=== PATIENT | female | born 1995 | race Caucasian/White ===

== ENCOUNTER → 2020-11-21 | Outpatient (CLI) | payer BC ==
[~2020-11-21] MED LIST: CATHETER FLUSH 10 ML SYR IV PRN; HOLD METFORMIN - RECEIVED CONTRAST 20 ML VIAL IV SCH; IOHEXOL 350 MG/ML 100 ML (OMNIPAQUE 350) VIAL IV ONE; NS 100 ML (IVPB) BAG IV ONE
--- NOTE | 2020-11-21 09:47 | Diagnostic Imaging Report ---
PROCEDURE: CT neck soft tissue with contrast. TECHNIQUE: Multiple contiguous axial images were obtained through the neck after the administration of contrast. Auto Exposure Controls were utilized during the CT exam to meet ALARA standards for radiation dose reduction. INDICATION: Periauricular swelling, symptoms began 2 months ago The parotid and submandibular glands of the thyroid unremarkable. The nasopharynx, oropharynx and hypopharynx unremarkable. The prevertebral and retropharyngeal spaces unremarkable. No cervical adenopathy. No airway compromise. The thoracic inlet and visualized apices are unremarkable. No suspicious bony pathology. IMPRESSION: This is an unremarkable soft tissue neck CT. No acute finding. No abnormalities to explain the abnormal clinical exam. No suspicious feature. Dictated by: Dictated on workstation # [id number]
== END ==
LOC: RAD FS 07:58
PROVIDERS: ATTEND Nurse Practitioner Family
DX: M54.2 Cervicalgia (principal); R22.0 Localized swelling, mass and lump, head
CPT/HCPCS: 70491

== ENCOUNTER → 2021-08-10 | Outpatient (CLI) | payer BC | LOC: LAB FS 08:39 | PROVIDERS: ATTEND Nurse Practitioner Family | DX: O20.9 Hemorrhage in early pregnancy, unspecified (principal); Z3A.00 Weeks of gestation of pregnancy not specified | CPT/HCPCS: 36415; 84702 ==

== ENCOUNTER 2021-08-22 09:24 | Emergency (ER) | payer BC ==
[~2021-08-22] VITALS: Ht 162.5 cm; Wt 71.6 kg
[2021-08-22 10:07] LABS: BILIRUBIN,URINE NEGATIVE (NEGATIVE); CLARITY,URINE CLEAR; COLOR,URINE YELLOW; GLUCOSE, URINE (UA) NEGATIVE (NEGATIVE); KETONES,URINE NEGATIVE (NEGATIVE); LEUKOCYTE ESTERASE ,URINE NEGATIVE (NEGATIVE); NITRITE,URINE NEGATIVE (NEGATIVE); PROTEIN,URINE NEGATIVE (NEGATIVE)
[2021-08-22 10:09] VITALS: BP 120/77
[2021-08-22 10:30] LABS: BACTERIA,URINE NEGATIVE /HPF; SQUAMOUS EPITHELIAL CELL,UR RARE /HPF
[2021-08-22 10:32] LABS: BASOPHILS % (AUTO) 0 % (0-10); EOSINOPHILS % (AUTO) 0 % (0-10); HEMATOCRIT 41 % (35-52); HEMOGLOBIN 13.6 g/dL (11.5-16.0); LYMPHOCYTES # (AUTO) 2.5 10^3/uL (1.0-4.0); LYMPHOCYTES % (AUTO) 25 % (12-44); MEAN CORPUSCULAR HEMOGLOBIN 28 pg (25-34); MEAN CORPUSCULAR HGB CONC 33 g/dL (32-36); MEAN CORPUSCULAR VOLUME 85 fL (80-99); MEAN PLATELET VOLUME 8.9 fL (9.0-12.2); MONOCYTES # (AUTO) 0.4 10^3/uL (0.0-1.0); MONOCYTES % (AUTO) 4 % (0-12); NEUTROPHILS # (AUTO) 7.1 10^3/uL (1.8-7.8); NEUTROPHILS % (AUTO) 70 % (42-75); PLATELET COUNT 239 10^3/uL (130-400); WHITE BLOOD COUNT 10.1 10^3/uL (4.3-11.0)
--- NOTE | 2021-08-22 11:02 | ED GU-Female ---
General Chief Complaint: OB < 20 WEEKS Stated Complaint: VAGINAL BLEEDING 8 WEEKS PREG Nursing Triage Note: pt reports being 8 weeks . Spotting since 08/09. today had blood clots and heavier bleeding. Has 2 previous miscarriages Source: patient Exam Limitations: no limitations (STEPHANE MONSALVE APRN) History of Present Illness Date Seen by Provider: Aug 22, 2021 Time Seen by Provider: 11:00 Initial Comments To ER with reports that she is 8 weeks . Spotting began on 08/09. She has had a small amount of spotting since the but today had more period Bleeding. No fevers or chills. She is G3, P0 with previous two pregnancies ending in miscarriage. She will be following with Dr. Haile. Timing/Duration: constant Severity/Quality: cramping Location: unknown Radiation: none Activities at Onset: none Prior Genitourinary Problems: none Associated Symptoms: denies symptoms (STEPHANE MONSALVE APRN) Allergies and Home Medications Allergies Coded Allergies: No Allergy Information Available (Unverified , 11/21/20) Patient Home Medication List Home Medication List Reviewed: Yes (STEPHANE MONSALVE APRN) Hydrocodone/Acetaminophen (Hydrocodone-Acetamin 5-325 mg) 1 Each Tablet, 1 TAB PO Q4H PRN for PAIN-MODERATE (5-7) Prescribed by: STEPHANE MONSALVE on 08/22/21 1130 Review of Systems Review of Systems Constitutional: see HPI; No chills, No fever EENTM: see HPI Respiratory: no symptoms reported Cardiovascular: no symptoms reported Genitourinary: no symptoms reported Musculoskeletal: no symptoms reported Skin: no symptoms reported Psychiatric/Neurological: No Symptoms Reported Endocrine: No Symptoms Reported (STEPHANE MONSALVE APRN) Past Ihshtuw-Eclibp-Rtghmm Hx Patient Social History Tobacco Use?: No Substance use?: No Alcohol Use?: No Pt feels they are or have been: No (STEPHANE MONSALVE APRN) Physical Exam Vital Signs Vital Signs - First Documented 08/22/21 10:09 Temp 35.9 Pulse 67 Resp 14 B/P (MAP) 120/77 (91) Pulse Ox 100 (SERJIO OSEI MD) Vital Signs Capillary Refill : Less Than 3 Seconds (STEPHANE MONSALVE APRN) Height, Weight, BMI Height: '" Weight: lbs. oz. kg; 27.00 BMI Method: General Appearance: WD/WN, no apparent distress HEENT: PERRL/EOMI, normal ENT inspection Neck: non-tender, full range of motion Respiratory: no respiratory distress, no accessory muscle use Gastrointestinal: normal bowel sounds, non tender, soft Extremities: normal range of motion, non-tender Neurologic/Psychiatric: alert, normal mood/affect, oriented x 3 Skin: normal color, warm/dry (STEPHANE MONSALVE APRN) Progress/Results/Core Measures Suspected Sepsis SIRS Temperature: Pulse: 67 Respiratory Rate: 14 Laboratory Tests 08/22/21 10:20: White Blood Count 10.1 Blood Pressure 120 /77 Mean: 91 Laboratory Tests 08/22/21 10:20: Platelet Count 239 (STEPHANE MONSALVE APRN) Results/Orders Vital Signs/I&O Capillary Refill : Less Than 3 Seconds (STEPHANE MONSALVE APRN) Blood Pressure Mean: 91 Departure Communication (Admissions) Family Conversation NAME: BALJINDER NEGRON [facility] REC#: [id number] PT STATUS: REG ER : 1995 PHYSICIAN: STEPHANE MONSALVE APRN ADMIT DATE: 08/22/21/ER Draft Date of Exam:08/22/21 US OB<14 WKS SNGLE W/TRANSVAG INDICATION: Bleeding There are no prior studies available for comparison. There is no clear evidence for a gestational sac within the uterus. The endometrial lining is somewhat thickened and there are areas of increased echogenicity within the endometrial. These findings may well be secondary to a spontaneous . Furthermore there does appear to be a small amount of increased vascularity about the irregular endometrium. The possibility that there is retained products of conception present should be considered. Correlation with patient's beta-hcg levels would also be recommended. There is no pelvic mass or free fluid collection evident. The ovaries are generally unremarkable. IMPRESSION: 1. There is no evidence for a gestational sac within the uterus. The fluid and debris within the endometrial canal may be related to a spontaneous . Correlation with patient's beta hcg levels would be recommended. 2. There is also slightly increased vascularity and the possibility that there is a small amount of retained products of conception should be considered as well. 3. These results were discussed with Stephane Monsalve. . Dictated on workstation # [id number] Dict: 08/22/21 1125 Trans: 08/22/21 1140 [facility] [id number] Interpreted by: JOVANNI SALCEDO MD Electronically signed by: [id number] spoke with Dr. Hills. Patient is hemodynamically stable without hemorrhage. No indication for D&C. Occasionally she would give Cytotec 800 mcg but since the patient has already started to bleed on her own will likely expel these products on her own without intervention. She will have the office nurse follow-up with the patient to schedule a repeat hCG in 1 to 2 weeks after she quits bleeding. (STEPHANE MONSALVE APRN) Impression Primary Impression: Spontaneous miscarriage Disposition: HOME, SELF-CARE Condition: Stable Departure-Patient Inst. Decision time for Depature: 11:27 (STEPHANE MONSALVE APRN) Referrals: [facility] [place] (PCP) Primary Care Physician ANISA REYNOLDS APRN (Family) Primary Care Physician Patient Instructions: Dealing With Miscarriage Add. Discharge Instructions: 1 1. Pain medication as directed. Expect to pass these products of conception on your own at home in the course of the next 2 to 3 days. Return to ER for intolerable pain or fevers. Call Dr. Hills for follow-up. All discharge instructions reviewed with patient and/or family. Voiced understanding. Scripts Hydrocodone/Acetaminophen (Hydrocodone-Acetamin 5-325 mg) 1 Each Tablet 1 TAB PO Q4H PRN for PAIN-MODERATE (5-7), #14 TAB Prov: STEPHANE MONSALVE APRN 08/22/21 ATTENDING PHYSICIAN NOTE: I was physically present as attending physician in the emergency department during the care of this patient, and I ordered initial tests after review of CC and triage infot I was otherwise not directly involved in the decision making or delivery of care for this patient. (SERJIO OSEI MD) Copy Copies To 1: MAYITO HILLS PETER J APRN Aug 22, 2021 11:01 SERJIO OSEI MD Aug 27, 2021 10:04
[2021-08-22] MEDS ORDERED: ACHD5005 PO (11:30)
--- NOTE | 2021-08-22 11:42 | Diagnostic Imaging Report ---
INDICATION: Bleeding There are no prior studies available for comparison. There is no clear evidence for a gestational sac within the uterus. The endometrial lining is somewhat thickened and there are areas of increased echogenicity within the endometrial. These findings may well be secondary to a spontaneous . Furthermore there does appear to be a small amount of increased vascularity about the irregular endometrium. The possibility that there is retained products of conception present should be considered. Correlation with patient's beta-hcg levels would also be recommended. There is no pelvic mass or free fluid collection evident. The ovaries are generally unremarkable. IMPRESSION: 1. There is no evidence for a gestational sac within the uterus. The fluid and debris within the endometrial canal may be related to a spontaneous . Correlation with patient's beta hcg levels would be recommended. 2. There is also slightly increased vascularity and the possibility that there is a small amount of retained products of conception should be considered as well. 3. These results were discussed with Cash Monsalve. . Dictated by: Dictated on workstation # [id number]
== END 2021-08-22 12:12 | disposition home or self-care (01) ==
LOC: EDUNIT# 09:24 → ER 09:25
DX: O03.9 Complete or unspecified spontaneous abortion without complication (principal); Z3A.08 8 weeks gestation of pregnancy
CPT/HCPCS: 36415; 76801; 76817; 81000; 84702; 85025; 86900; 86901; 96372